=== PATIENT | male | born 1960 | race Caucasian/White ===

== ENCOUNTER → 2016-10-18 | Outpatient (CLI) | payer OTHER ==
[~2016-10-18] MED LIST: ACET160O49 PO; AMIT75TA PO; CELE100C PO; HYDR-2672 PO; IOHEXOL 180 MG/ML 10 ML VIAL. IT ONE; LIDOCAINE 1% Multi-Dose 20 ML VIAL. ID ONE; SIMV80TA3 PO
--- NOTE | 2016-10-18 15:30 | KCIC ---
PROCEDURE Lumbar myelogram. HISTORY Lumbar radiculopathy, low back pain for 6 years TECHNIQUE Patient was informed of the risks to include pain, infection, bleeding, nerve root injury, seizures, allergic reaction. All questions were answered. Patient signed a written consent form for lumbar myelogram.The patient was placed in a prone oblique position on the fluoroscopy table. External skin site of the lower back was prepped and draped in the usual sterile fashion. Betadine was utilized for cleansing solution. 1 percent lidocaine was utilized for local anesthesia at the anticipated site of puncture of the right L3-4 interlaminar space. A guiding needle was advanced into the soft tissues. Through the guiding needle, a 25 Rcahell needle was advanced until return of cerebral spinal fluid.Fifteen cc [id number] injected during fluoroscopic visualization. [place] were removed. There were no immediate complications. Fluoroscopic spot images were acquired including standing images of the lumbar spine. The patient was transferred to CT suite for CT examination of the lumbar spine. Fluoroscopy time, fluoroscopy images: 1 minutes 4 seconds, 11 images FINDINGS There apparently is transitional anatomy of the lumbar spine. There is a rudimentary intervertebral disc space at what is considered S1-S2 with most inferior fully formed intervertebral disc space considered L5-S1. There is fairly advanced degenerative disc disease at what is considered L5-S1, to a lesser degree at L4-5. There are anterior extradural defects at L4-5 and L5-S1. There is multilevel mild spondylosis of the mid to inferior lumbar spine. There was no evidence of myelographic block. There are small contrast opacified nerve root sleeve diverticula on the right at what is considered S2 and S3. 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 There is fairly advanced degenerative disc disease at what is considered L5-S1 and to a lesser degree at L4-5, spondylosis of mid to inferior lumbar spine. There are anterior extradural defects at what is considered L4-5 and L5-S1. Electronically signed by: Khris Patiño MD (Oct 18, 2016 15:28:54)
--- NOTE | 2016-10-18 15:34 | KCIC ---
PROCEDURE Lumbar spine radiographs HISTORY Lumbar radiculopathy, low back pain for 6 years COMPARISON None FINDINGS Five views of the lumbar spine to include neutral, flexion, and extension lateral radiographs are submitted. There is mild dextroscoliosis centered upon the superior lumbar spine. There apparently is transitional anatomy of the lumbar spine. There is a rudimentary intervertebral disc space at what is considered S1-S2. Most inferior fully formed intervertebral disc space is considered L5-S1. There is advanced degenerative disc disease at what is considered L5-S1 and to a lesser degree at L4-5. There is mild spondylosis of the lumbar spine. There is facet degenerative change greater inferiorly of the lumbar spine. Lumbar vertebral body stature is adequate. Vertebral body AP alignment is within normal limits, does not significantly change with flexion or extension. IMPRESSION 1. There is transitional anatomy of the lumbar spine, most inferior fully formed intervertebral disc space considered L5-S1 with a rudimentary intervertebral disc space at S1-S2. 2. There is degenerative disc disease at what is considered L4-5 and L5-S1, mild multilevel spondylosis. There is multilevel lumbar facet degenerative change. Electronically signed by: Khris Patiño MD (Oct 18, 2016 15:31:35)
--- NOTE | 2016-10-18 16:07 | KCIC ---
PROCEDURE CT lumbar spine exam HISTORY Lumbar radiculopathy, low back pain TECHNIQUE CT imaging was performed of the lumbar spine after injection for the lumbar myelogram. Multiplanar reconstruction images are submitted. Exposure: One or more of the following individualized dose reduction techniques were utilized for this exam: 1. Automated exposure control. 2. Adjustment of the mA and/or kV according to patient size. 3. Use of iterative reconstruction technique. COMPARISON MRI lumbar spine exam May 29, 2016 [facility] FINDINGS There is transitional anatomy of the lumbar spine. Based on the visualization of bilateral ribs at what will be considered T12, there is a rudimentary intervertebral disc space at what is considered S1-S2 with the most inferior fully formed intervertebral disc space considered L5-S1. There is advanced degenerative disc disease at L5-S1 and to lesser degree at L4-5, minimally at L3-4. Lumbar vertebral body stature is preserved. There is negligible posterior subluxation of L1 relative to L2. There is mild inferior lumbar levoscoliosis. Conus terminates at what is considered L1-L2. Incidental note is made of circumaortic left renal vein. There are some small contrast opacified nerve root sleeve diverticula such as on the right at S3. T12-L1: Spinal canal and neural foramina are adequate. L1-L2: Neural foramina and spinal canal are adequate. There is mild facet degenerative change. L2-3: There is mild to moderate facet degenerative change. There is minimal narrowing of the left neural foramen, right neural foramen adequate. Spinal canal is adequate. L3-4: There is mild to moderate facet degenerative change. There is negligible disc osteophyte complex and bulge. Spinal canal is adequate. Neural foramina are adequate. L4-L5: There is moderate facet degenerative change and minimal buckling of the ligamentum flavum. There is minimal broad posterior disc osteophyte complex. There is mild narrowing of the right neural foramen with disc osteophyte complex near the extraforaminal right L4 nerve root. Left neural foramen is adequate. Minimal disc osteophyte complex is also near the extraforaminal left L4 nerve root without displacement. Spinal canal is overall adequate. L5-S1: There is minimal disc osteophyte complex. Spinal canal is overall adequate. There is mild to moderate facet degenerative change. There is moderate narrowing of the right neural foramen greater distally in part from disc osteophyte complex, [id number] narrowing on the left due to facet degenerative change and minimal disc osteophyte complex. S1-S2: Spinal canal and neural foramina are adequate. IMPRESSION 1. There is transitional anatomy of the lumbar spine, rudimentary intervertebral disc space at what is considered S1-S2 with the most inferior fully formed intervertebral disc space considered L5-S1 for this report. 2. There is advanced degenerative disc disease at L5-S1 and to a somewhat lesser degree at L4-5, minimally at L3-4. There is spondylosis greatest at the same levels. 3. There is no significant lumbar spinal stenosis. 4. There is mild to moderate neural foramina compromise bilaterally at L5-S1, to a lesser degree on the right at L4-5. 5. There is multilevel lumbar facet degenerative change. Electronically signed by: Khris Patiño MD (Oct 18, 2016 16:05:32)
== END | disposition home or self-care (01) ==
LOC: KCIC 13:48
PROVIDERS: ATTEND Neurological Surgery
DX: M54.16 Radiculopathy, lumbar region (principal); M51.37 Other intervertebral disc degeneration, lumbosacral region; M47.896 Other spondylosis, lumbar region
CPT/HCPCS: 72110; 72132; 72265